=== PATIENT | female | born 1950 | race Caucasian/White ===

== ENCOUNTER → 2018-06-23 | Emergency (ER) | payer OTHER ==
[2018-06-23] MEDS: DEXAMETHASONE 10 MG/ML 1 ML INJ IM (15:33)
[2018-06-23] MEDS: KETOROLAC 30 MG INJ IM (15:33)
== END | disposition home or self-care (01) ==
LOC: FTE 13:49
DX: M54.5 Low back pain (principal); F17.210 Nicotine dependence, cigarettes, uncomplicated
CPT/HCPCS: 96372; 99284-25